=== PATIENT | female | born 1990 | race Caucasian/White ===

== ENCOUNTER 2017-11-06 18:13 | Emergency (ER) | payer OTHER ==
[2017-11-06 18:13] VITALS: BMI 28.1
[2017-11-06] MEDS ORDERED: Lidocaine 5% Patch TD STA (19:50)
--- NOTE | 2017-11-06 20:51 | ED PDOC ---
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 Patient reports that the pain radiates down her right leg and progressively worsens with standing. She further reports that for the past 5 days she has had dysuria. Denies fever, nausea, vomiting, abdominal pain , incontinence, hematuria and history of kidney stones. PMD: FAMILY PROVIDER,NO Past Medical History Reviewed: Historical Data, Nursing Documentation, Vital Signs Vital Signs: Last Vital Signs Temp 98.2 F 11/06/17 18:46 Pulse 77 11/06/17 18:46 Resp 18 11/06/17 18:46 BP 121/79 11/06/17 18:46 Pulse Ox 100 11/06/17 18:46 - Medical History PMH: No Chronic Diseases - Surgical History Surgical History: No Surg Hx - Family History Family History: States: Unknown Family Hx - Home Medications Home Medications: Ambulatory Orders Medication Instructions Recorded Ibuprofen [Motrin] 600 mg PO Q6 04/06/15 Naproxen [Naprosyn] 500 mg PO BID PRN #10 tab 11/06/17 Sulfamethoxazole/Trimethoprim 1 tab PO BID #14 tab 11/06/17 [Bactrim DS 800 mg-160 mg] - Allergies Allergies/Adverse Reactions: Allergies Allergy/AdvReac Type Severity Reaction Status Date / Time No Known Allergies Allergy Verified 11/06/17 18:46 Review of Systems Constitutional: Negative for: Fever Gastrointestinal: Negative for: Nausea, Vomiting, Abdominal Pain, Diarrhea, Constipation Genitourinary Female: Positive for: Dysuria. Negative for: Frequency, Incontinence, Hematuria Musculoskeletal: Positive for: Back Pain (right sided lower back) Physical Exam - Physical Exam Appears: Positive for: Non-toxic, In Acute Distress (minimal painful distress) Skin: Positive for: Normal Color, Warm, Dry. Negative for: Rash Cardiovascular/Chest: Positive for: Regular Rate, Rhythm, Chest Non Tender. Negative for: Murmur, Tachycardia Respiratory: Positive for: Normal Breath Sounds. Negative for: Rales, Rhonchi, Wheezing, Respiratory Distress Gastrointestinal/Abdominal: Positive for: Normal Exam, Bowel Sounds, Soft. Negative for: Tenderness, Mass, Guarding, Rebound Back: Positive for: Other (right lower paralumbar tenderness). Negative for: L CVA Tenderness, R CVA Tenderness, Vertebral Tenderness, Muscle Spasm Neurologic/Psych: Positive for: Alert, Oriented, Gait - Laboratory Results Result Diagrams: 11/06/17 20:39 11/06/17 20:39 - ECG O2 Sat by Pulse Oximetry: 100 (RA) Pulse Ox Interpretation: Normal Medical Decision Making Medical Decision Makin Initial Impression 27 year old female presenting with right sided lower back pain and dysuria Initial Plan: * Upreg * Udip * CBC * Flexeril 10mg PO * Lidocaine 5% 1 a TD * Toradol 30mg IM * Urine Culture * Urinalysis * Reevaluation 2158 CT abd/pelvis w/o contrast: 1. Slight urinary bladder wall thickening and surrounding induration which may reflect cystitis. 2. Otherwise negative CT abdomen/pelvis. No renal or ureteral calculi are evident and there is no evidence of obstructive uropathy Rocephin 1gm IV ordered. Pt. informed of results and agrees with care. Reports good relief of pain. Documented by Emilia Aparicio acting as a scribe for Kurtis Lacey PA-C. All medical record entries made by the Scribe were at my direction and personally dictated by me. I have reviewed the chart and agree that the record accurately reflects my personal performance of the history, physical exam, medical decision making, and the department course for this patient. I have also personally directed, reviewed, and agree with the discharge instructions and disposition. Disposition - Clinical Impression Clinical Impression: UTI (urinary tract infection), Low back pain - Patient ED Disposition Is Patient to be Admitted: No - Disposition Referrals: [facility] [Outside] Disposition: Routine/Home Disposition Time: 22:28 Condition: IMPROVED Additional Instructions: Follow up with [facility] for further evaluation. Return to ED immediately if symptoms worsen. Prescriptions: Naproxen [Naprosyn] 500 mg PO BID PRN #10 tab PRN Reason: Pain Sulfamethoxazole/Trimethoprim [Bactrim DS 800 mg-160 mg] 1 tab PO BID #14 tab Instructions: Low Back Pain (DC), Urinary Tract Infections in Adults Forms: [employer] (Belarusian) Print Language: CITIZEN OF [place]
[2017-11-06 20:52] LABS: SQUAMOUS EPITHIAL 1 /hpf (0-5); URINE BILIRUBIN NEGATIVE (NEGATIVE); URINE BLOOD SMALL (NEGATIVE); URINE CLARITY SLIGHTY-CLOUDY (Clear); URINE COLOR STRAW (YELLOW); URINE GLUCOSE (UA) NEG (Normal); URINE LEUKOCYTE ESTERASE TRACE Leu/uL (Negative); URINE PROTEIN NEGATIVE (NEGATIVE); URINE UROBILINOGEN 0.2-1.0 mg/dL (0.2-1.0)
[2017-11-06 21:02] LABS: BASO # 0.1 K/uL (0.0-0.2); BASO % 0.6 % (0.0-2.0); EOS # 0.2 K/uL (0.0-0.7); EOS % 1.9 % (0.0-4.0); HEMOGLOBIN 14.7 g/dL (12.0-16.0); LYMPH # 2.8 K/uL (1.0-4.3); LYMPH % 31.2 % (20.0-40.0); MEAN CELL VOLUME 88.4 fl (81.0-99.0); MEAN CORPUSCULAR HEMOGLOBIN 29.7 pg (27.0-31.0); MEAN CORPUSCULAR HGB CONC 33.5 g/dL (33.0-37.0); MONO # 0.6 K/uL (0.0-0.8); NEUT # 5.5 K/uL (1.8-7.0); NEUT % 60.3 % (50.0-75.0); NRBC % 0.1 % (0.0-0.0); RBC 4.95 Mil/uL (3.80-5.20); RED CELL DISTRIBUTION WIDTH 12.7 % (11.5-14.5); WHITE BLOOD COUNT 9.1 K/uL (4.8-10.8)
[2017-11-06 21:05] LABS: ALB/GLOB RATIO 1.2 (1.0-2.1); ALBUMIN 4.4 g/dL (3.5-5.0); ALT/SGPT 22 U/L (9-52); AST/SGOT 17 U/L (14-36); BLOOD UREA NITROGEN 9 mg/dl (7-17); CALCIUM 9.4 mg/dL (8.4-10.2); GFR AFRICAN-AMERICAN > 60; GFR NON-AFRICAN AMERICAN > 60
[2017-11-06] MEDS ORDERED: cefTRIAXone (Rocephin) 1 gm Inj ONE (22:03)
[2017-11-06 23:01] VITALS: BP 118/84; PULSE 80; RESP 16; TEMP 98; O2SAT 99
--- NOTE | 2017-11-07 11:09 | CT ---
PROCEDURE: CT Abdomen and Pelvis with Oral contrast. HISTORY: R sided lower back pain; hematuria COMPARISON: None. TECHNIQUE: Contiguous axial images of the abdomen and pelvis. Coronal and Sagittal reformats generated. This CT exam was performed using one or more of the following dose reduction techniques: Automated exposure control, adjustment of the mA and/or kV according to patient size, and/or use of iterative reconstruction technique. The the Radiation dose: Total exam DLP = 465.86 mGy-cm. FINDINGS: LOWER THORAX: Heart size normal. No significant pericardial effusion. Tiny hiatal hernia. . LIVER: Unremarkable. No gross lesion or ductal dilatation. GALLBLADDER AND BILE DUCTS: Unremarkable. PANCREAS: Unremarkable. No mass. No ductal dilatation. SPLEEN: Unremarkable. No splenomegaly. ADRENALS: No adrenal lesions. KIDNEYS AND URETERS: Kidneys demonstrate relatively symmetric nephrograms. N clair evidence of nephrolithiasis or hydronephrosis. BLADDER: Urinary bladder wall thickening possibly in part due to incomplete distention however correlation with urinalysis to exclude cystitis. . REPRODUCTIVE: Unremarkable. APPENDIX: Debris and air filled appendix seen on axial image number [id number]. No evidence to suggest acute appendicitis. BOWEL: Evaluation of the bowel is somewhat limited the due to the lack of oral contrast material. Stomach is incompletely distended. Visualized loops of small bowel exhibit normal contour and caliber. No evidence mechanical small bowel obstruction. Moderately large amount of stool seen within the cecum and at ascending colon suggesting mild fecal retention PERITONEUM: Unremarkable. No fluid collection. No free air. Small fat containing umbilical hernia. LYMPH NODES: Unremarkable. No enlarged lymph nodes. VASCULATURE: Unremarkable. No aortic aneurysm. BONES: Minor multilevel degenerative spondylosis of the lower thoracic and lumbar spine. OTHER FINDINGS: None. IMPRESSION: Wall thickening of the urinary bladder in part due to underdistention however cystitis must be excluded. Correlation with urinalysis recommended.
== END 2017-11-06 23:00 | disposition home or self-care (01) ==
LOC: H.ER 18:13
DX: N39.0 Urinary tract infection, site not specified (principal); M54.5 Low back pain
CPT/HCPCS: 74176; 80053; 81003; 81025; 85025; 87086; 96365; 96372; 99282; J0696; J1885

== ENCOUNTER 2018-02-26 11:56 | Emergency (ER) | payer OTHER ==
[2018-02-26 11:57] VITALS: BMI 28.1
[2018-02-26 12:20] VITALS: BP 118/71; PULSE 80; RESP 16; TEMP 98.5; O2SAT 100
[2018-02-26] MEDS ORDERED: Lidocaine 5% Patch TD STA (12:52)
--- NOTE | 2018-02-26 12:54 | ED PDOC ---
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 She denies any fever, chills, nausea, vomiting, abdominal pain, or urinary complaints. Patient was seen 10/2017 in ED for similar complaints by this provider and treated for a UTI. She reports back pain has been daily since last ED visit and has not followed up with a physician as advised. Pain is worse when she bends forward or stands for long periods. PMD: none provided Past Medical History Reviewed: Historical Data, Nursing Documentation, Vital Signs Vital Signs: Last Vital Signs Temp 98.5 F 02/26/18 12:15 Pulse 80 02/26/18 12:15 Resp 16 02/26/18 12:15 BP 118/71 02/26/18 12:15 Pulse Ox 100 02/26/18 12:15 - Medical History PMH: No Chronic Diseases - Surgical History Surgical History: No Surg Hx - Family History Family History: States: Unknown Family Hx - Home Medications Home Medications: Ambulatory Orders Medication Instructions Recorded Ibuprofen [Motrin] 600 mg PO Q6 04/06/15 Naproxen [Naprosyn] 500 mg PO BID PRN #10 tab 11/06/17 Sulfamethoxazole/Trimethoprim 1 tab PO BID #14 tab 11/06/17 [Bactrim DS 800 mg-160 mg] Cyclobenzaprine [Cyclobenzaprine 10 mg PO Q8 PRN #10 tab 02/26/18 HCl] Meloxicam [Mobic] 7.5 mg PO DAILY PRN #10 tab 02/26/18 - Allergies Allergies/Adverse Reactions: Allergies Allergy/AdvReac Type Severity Reaction Status Date / Time No Known Allergies Allergy Verified 02/26/18 12:15 Review of Systems ROS Statement: Except As Marked, All Systems Reviewed And Found Negative Constitutional: Negative for: Fever, Chills Gastrointestinal: Negative for: Nausea, Vomiting, Abdominal Pain Genitourinary Female: Negative for: Dysuria, Incontinence, Hematuria Musculoskeletal: Positive for: Back Pain (lower) Physical Exam - Reviewed Nursing Documentation Reviewed: Yes Vital Signs Reviewed: Yes - Physical Exam Appears: Positive for: Non-toxic, Uncomfortable, In Acute Distress (mildly) Skin: Positive for: Normal Color, Warm. Negative for: Rash Cardiovascular/Chest: Positive for: Regular Rate, Rhythm, Chest Non Tender Respiratory: Positive for: Normal Breath Sounds. Negative for: Wheezing, Respiratory Distress Gastrointestinal/Abdominal: Positive for: Normal Exam, Soft. Negative for: Tenderness Back: Positive for: Vertebral Tenderness (paralumbar L > R). Negative for: L CVA Tenderness, R CVA Tenderness Extremity: Positive for: Normal ROM (upper/lower) Neurologic/Psych: Positive for: Alert (x3), Oriented. Negative for: Motor/Sensory Deficits - ECG O2 Sat by Pulse Oximetry: 100 (RA) Pulse Ox Interpretation: Normal Medical Decision Making Medical Decision Making: Time: 1240 Initial Plan: * Urine preg * Flexeril 10mg PO * Lidoderm 5% * Toradol 30mg IM Time: 1248 --Upon provider re-evaluation, patient is medically stable and requires no further treatment in the ED at this time. Provider informed patient that she will eventually require an MRI for persistent pain. Counseling was provided and all questions were answered regarding diagnosis and need for follow up with the [facility]. There is agreement to discharge plan. Return if symptoms persist or worsen. Scribe Attestation: Documented by Ariadne Ruelas, acting as a scribe for Kurtis Lacey PA-C. Provider Scribe Attestation: All medical record entries made by the Scribe were at my direction and personally dictated by me. I have reviewed the chart and agree that the record accurately reflects my personal performance of the history, physical exam, medical decision making, and the department course for this patient. I have also personally directed, reviewed, and agree with the discharge instructions and disposition. Disposition - Clinical Impression Clinical Impression: Low back pain - Patient ED Disposition Is Patient to be Admitted: No Counseled Patient/Family Regarding: Studies Performed, Diagnosis, Need For Followup - Disposition Referrals: [facility] [Outside] [facility] [Outside] Disposition: Routine/Home Disposition Time: 12:48 Condition: IMPROVED Additional Instructions: LYNDON FISHMAN, thank you for letting us take care of you today. Your provider was Reynaldo Fletcher MD and you were treated for BACK PAIN. The emergency medical care you received today was directed at your acute symptoms. If you were prescribed any medication, please fill it and take as directed. It may take several days for your symptoms to resolve. Return to the Emergency Department if your symptoms worsen, do not improve, or if you have any other problems. Please contact your doctor or call one of the physicians/clinics you have been referred to that are listed on the Patient Visit Information form that is included in your discharge packet. Bring any paperwork you were given at discharge with you along with any medications you are taking to your follow up visit. Our treatment cannot replace ongoing medical care by a primary care provi godwin outside of the emergency department. Thank you for allowing the [facility] team to be part of your care today. If you had an X-Ray or CT scan: A Radiologist will review the ED reading if any change in treatment is needed we will contact you. If you had a blood, urine, or wound culture: It will take several days for the results, if any change in treatment is needed we will contact you. If you had an STI test: It will take 48 hours for the results. Please call after 1 week if you have not heard back. Prescriptions: Cyclobenzaprine [Cyclobenzaprine HCl] 10 mg PO Q8 PRN #10 tab PRN Reason: Muscle Spasm Meloxicam [Mobic] 7.5 mg PO DAILY PRN #10 tab PRN Reason: Pain, Mild (1-3) Instructions: Low Back Pain (DC) Forms: [employer] (Sierra Leonean) Print Language: DJIBOUTIAN
[2018-02-26] MEDS ORDERED: Lidocaine 5% Patch TD ONE (13:18)
== END 2018-02-26 14:12 | disposition home or self-care (01) ==
LOC: H.ER 11:56
DX: N39.0 Urinary tract infection, site not specified (principal)
CPT/HCPCS: 96372; 99282; J1885

== ENCOUNTER 2018-04-27 14:41 | Emergency (ER) | payer OTHER ==
[2018-04-27 14:41] VITALS: BMI 28.1
[2018-04-27 14:57] VITALS: BP 121/81; PULSE 63; RESP 16; TEMP 98.2; O2SAT 100
--- NOTE | 2018-04-27 15:20 | ED PDOC ---
HPI: Female Pain Time Seen by Provider: 04/27/18 14:58 Chief Complaint (Nursing): Female Genitourinary Chief Complaint (Provider): Female Genitourinary History Per: Other (RN: Mily Levine ) Onset/Duration Of Symptoms: Days (x1 week) Associated Symptoms: Nausea, Vomiting, Back Pain Additional Complaint(s): Patient is a 27 year old female who reports of having lower back pain, associated with dysuria and urinary frequency that began last week. Patient reports that she may be as her last period was on March 07. She states she took a OTC test and found it to be positive on but has not confirmed the finding. Patient states she also has nausea, 1 episode of vomiting, and a global headache. She denies taking any medications prior to arrival. Otherwise: (+) back pain, (+) nausea, (+) vomiting, (+) global headache, (+) abdominal pain, (-) hematuria, (-) fever, (-) chills, (-) neck pain (-) vaginal bleeding PMD: none LMP: March 07 Past Medical History Reviewed: Historical Data, Nursing Documentation, Vital Signs Vital Signs: Last Vital Signs Temp 98.2 F 04/27/18 14:53 Pulse 63 04/27/18 14:53 Resp 16 04/27/18 14:53 BP 121/81 04/27/18 14:53 Pulse Ox 100 04/27/18 14:53 - Medical History PMH: No Chronic Diseases - Surgical History Surgical History: - Family History Family History: States: Unknown Family Hx - Home Medications Home Medications: Ambulatory Orders Medication Instructions Recorded Ibuprofen [Motrin] 600 mg PO Q6 04/06/15 RX: Naproxen [Naprosyn] 500 mg PO BID PRN #10 tab 11/06/17 Sulfamethoxazole/Trimethoprim 1 tab PO BID #14 tab 11/06/17 [Bactrim DS 800 mg-160 mg] Cyclobenzaprine [Cyclobenzaprine 10 mg PO Q8 PRN #10 tab 02/26/18 HCl] Meloxicam [Mobic] 7.5 mg PO DAILY PRN #10 tab 02/26/18 Acetaminophen [Acetaminophen 8 650 mg PO Q8 PRN #21 tablet.er 04/27/18 Hour] Nitrofurantoin Macrocrystals 100 mg PO BID #14 cap 12/15/18 [Macrobid] No122/Iron/Folic Acid 1 each PO DAILY #30 tablet 04/27/18 [ Multi Tablet] - Allergies Allergies/Adverse Reactions: Allergies Allergy/AdvReac Type Severity Reaction Status Date / Time No Known Allergies Allergy Verified 02/26/18 12:15 Review of Systems ROS Statement: Except As Marked, All Systems Reviewed And Found Negative Gastrointestinal: Positive for: Nausea, Vomiting, Abdominal Pain (lower abdominal pain) Genitourinary Female: Positive for: Dysuria, Frequency Musculoskeletal: Positive for: Back Pain (lower back pain) Neurological: Positive for: Headache Physical Exam - Reviewed Nursing Documentation Reviewed: Yes Vital Signs Reviewed: Yes - Physical Exam Comments: GENERAL APPEARANCE: Patient is awake, alert, oriented x 3, resting comfortably and in no acute distress. SKIN: Warm, dry; (-) cyanosis. EYES: (-) conjunctival pallor. ENMT: Mucous membranes moist. Airway patent: (-) stridor. NECK: Supple, FROM (-) tenderness, (-) stiffness, (-) lymphadenopathy. CHEST AND RESPIRATORY: (-) wheezing; (-) rales, (-) rhonchi; breath sounds equal bilaterally. Respirations even and nonlabored. HEART AND CARDIOVASCULAR: (-) irregularity ABDOMEN AND GI: Soft; (+) mild suprapubic discomfort (-) distention (-) CVA tenderness (-) guarding BACK: (-) midline tenderness EXTREMITIES: (-) deformity, (-) edema. NEURO AND PSYCH: Mental status as above; (-) focal findings. Gait: steady. Speech: clear. (-) facial asymmetry (-) aphasia - ECG O2 Sat by Pulse Oximetry: 100 (RA) Pulse Ox Interpretation: Normal Medical Decision Making Medical Decision Making: Time: 15:00 Impression: acute back pain and urinary symptoms, possible Plan: --Beta-HCG quantitative --ED urine --Tylenol 650 mg PO --Zofran 4 mg PO --Urine culture --Urinalysis 15:09 Urine test: positive. This is patient's 3rd with one prior vaginal and 1 prior c- section. Both pregnancies were full-term with no complications. She denies any care for this . 16:29 UA reviewed (+) UTI. Macrobid 100 mg PO ordered. In light of Beta-HCG quantitative and patient having abdominal pain, a transvaginal US was ordered to confirm IUP. 18:55 Patient in US. 20:45 US Findings: Real-time transabdominal and transvaginal ultrasound images of the pelvis were obtained. An anteverted uterus is noted, measuring 8.9 x 4.4 x 6.1 cm. The uterus demonstrates normal echotexture and echogenicity. There is a single live intrauterine . The crown rump length measures 0.58 cm. heart rate measures 132 bpm. There is no evidence of a subchorionic hemorrhage. The cervix measures three point your centimeters in length, and is closed. The right ovary measures 2.0 x 2.4 x 2.7 cm. The left ovary measures 2.4 x 1.4 x 3.0 cm. No adnexal masses are seen. Color Doppler flow is seen within both ovaries. There is no evidence of free fluid. Impression: Single live intrauterine measuring 6 weeks 4 days, with estimated due date of 12/17/2018. On re-evaluation, patient reports improvement of symptoms. On exam, patient remains AAOx3, in no acute distress. Lungs clear to auscultation, cardiac RRR, abdomen soft, non-tender, repeat neuro exam shows no focal findings. Vitals stable. Lab/Diagnostic results d/w the patient in great detail. Diagnosis of UTI, first trimester of d/w the patient. Based on history, exam and diagnostic results, plan will be for outpatient follow up with OBGYN clinic. Patient instructed to follow-up with pmd / referral provided / the clinic in 1- 2 days without fail. Advised to take medication as prescribed. Return to the emergency room at any time for any new or worsening symptoms. Patient states she fully agrees with and understands discharge instructions. States that she agrees with the plan and disposition. Verbalized and repeated discharge instructions and plan. I have given the patient opportunity to ask any additional questions. Scribe Attestation: Documented by Gilson Burns, acting as a scribe for Jolanta Infante Provider Scribe Attestation: All medical record entries made by the Scribe were at my direction and personally dictated by me. I have reviewed the chart and agree that the record accurately reflects my personal performance of the history, physical exam, medical decision making, and the department course for this patient. I have also personally directed, reviewed, and agree with the discharge instructions and disposition. Disposition - Clinical Impression Clinical Impression: UTI (urinary tract infection), First trimester , Positive test, Nausea - Patient ED Disposition Is Patient to be Admitted: No Counseled Patient/Family Regarding: Studies Performed, Diagnosis, Need For Followup, Rx Given - Disposition [facility] Disposition: Routine/Home Disposition Time: 20:45 Condition: STABLE Additional Instructions: La atencin mdica de emergencia que recibi hoy se dirigi a ana sntomas agudos. Si le recetaron algn medicamento, llnelo y tmelo segn las indicaciones. Los sntomas pueden tardar varios steinberg en resolverse. Regrese al Departamento de Emergencias si ana sntomas empeoran, no mejoran o si tiene otros problemas. Comunquese con hurst mdico dentro de 2 steinberg para percy nueva evaluacin y barbara un seguimiento o llame a toño de los mdicos / clnicas a los que diez sido referido y que figuran en el formulario de Informacin de visita al paciente que se incluye en hurst paquete de tk. Lleve todos los documentos que le entregaron al momento del tk junto con todos los medicamentos que est tomando para hurst visita de seguimiento. Nuestro tratamiento no puede reemplazar la atencin mdica continua por parte de un proveedor de atencin primaria (PCP) fuera del departamento de emergencias. Prescriptions: Acetaminophen [Acetaminophen 8 Hour] 650 mg PO Q8 PRN #21 tablet.er PRN Reason: Pain, Moderate (4-7) Nitrofurantoin Macrocrystals [Macrobid] 100 mg PO BID #14 cap No122/Iron/Folic Acid [ Multi Tablet] 1 each PO DAILY #30 tablet Instructions: Urinary Tract Infections in Adults, Nausea and Vomiting, Adult (DC), Symptoms, Care, - The Second Month, - The Third Month, - The Fourth Month Forms: [employer] (Austrian) Print Language: [place] IS[place]ER - POA Present On Arrival: None Results - Lab Results Lab Results: 04/27/18 04/27/18 15:25 15:15 Beta HCG, Quant [id number] Urine Color Yellow Urine Clarity Cloudy Urine pH 6.0 Ur Specific [place] 1.015 Urine Protein Negative Urine Glucose (UA) Neg Urine Ketones Negative Urine Blood Negative Urine Nitrate Negative Urine Bilirubin Negative Urine Urobilinogen 0.2-1.0 Ur Leukocyte Esterase Mod Urine RBC (Auto) 2 Urine Microscopic WBC 134 H Ur Squamous Epith Cells < 1 Urine Bacteria Rare
[2018-04-27 15:28] LABS: SQUAMOUS EPITHIAL < 1 /hpf (0-5); URINE BACTERIA RARE (<OCC); URINE BILIRUBIN NEGATIVE (NEGATIVE); URINE BLOOD NEGATIVE (NEGATIVE); URINE CLARITY CLOUDY (Clear); URINE COLOR YELLOW (YELLOW); URINE GLUCOSE (UA) NEG (NEGATIVE); URINE LEUKOCYTE ESTERASE MOD Leu/uL (Negative); URINE PROTEIN NEGATIVE (NEGATIVE); URINE UROBILINOGEN 0.2-1.0 mg/dL (0.2-1.0)
--- NOTE | 2018-04-28 15:35 | US ---
Date of service: 04/27/2018 PROCEDURE: OB Pelvic Ultrasound HISTORY: confirm IUP LMP: 03/06/2018 suggesting 7 week 3 day gestation. COMPARISON: None available. FINDINGS: UTERUS: Gestational sac: Single intrauterine gestation. Heart rate: 131 bpm. age (Ultrasound estimated): 6 weeks 3 days based on CRL mean 0.58 cm. Mean sac diameter 2.1 cm Brenda-gestational hemorrhage: None. Date of delivery (Ultrasound estimated) : 12/11/2018. Yolk sac measures 0.58 cm. Uterus measures 8.9 x 4.4 x 6.1 cm. Normal in size and appearance, anteverted. CERVIX: Measures 3.0 cm. Long and closed. No cervical abnormality seen. RIGHT OVARY: Measures 2.0 x 1.7 x 2.4 cm. No mass lesion. Normal flow. LEFT OVARY: Measures 2.4 x 3.0 x 1.4 cm. No solid mass. Normal flow. FREE FLUID: None. OTHER FINDINGS: None. IMPRESSION: Single viable intrauterine gestation average ultrasound age of 6 weeks 3 days based on CRL mean with cardiac activity of 131 beats per minute. No suspicious pattern to suggest decidual hemorrhage at this time.
== END 2018-04-27 20:52 | disposition home or self-care (01) ==
LOC: H.ER 14:41
DX: O23.41 Unspecified infection of urinary tract in pregnancy, first trimester (principal); O26.91 Pregnancy related conditions, unspecified, first trimester; R11.0 Nausea; Z3A.01 Less than 8 weeks gestation of pregnancy